=== PATIENT | male | born 2000 | race Caucasian/White ===

== ENCOUNTER 2024-12-05 12:57 | Emergency (ER) | payer SELFPAY ==
--- NOTE | ~2024-12-05 | XR_ITS ---
XR shoulder RT min 2V Ordering provider: Marlon Barrientos MD History: . right shoulder injury . Comparison: None. FINDINGS: BONES: No acute fracture or dislocation. JOINT SPACES: The acromioclavicular joint is normal. The glenohumeral joint is normal. SOFT TISSUES: Normal. IMPRESSION: No acute osseous abnormality right shoulder. Reviewed, dictated and finalized at location A.
[2024-12-05 12:57] VITALS: BP 131/83; PULSE 56; RESP 18; TEMP 36.3; O2SAT 97
--- NOTE | 2024-12-05 14:00 | ED.UPPEXIN ---
HPI - Extremity Injury (Upper) General Chief Complaint: Extremity Injury, Upper Stated Complaint: Shoulder pain Time Seen by Provider: 12/05/24 13:10 Source: patient Mode of arrival: ambulatory Limitations: no limitations History of Present Illness HPI narrative: patient is a 24-year-old male with no significant past medical history has been doing some heavy lifting and over the past couple days has felt shoulder discomfort on the right with no known injury no direct injury no numbness or tingling radiating down his arm has good range of motion although mildly limited with no bruising or swelling. MD complaint: injury to: right Onset (ago): day(s) Other Extremity Injury: Right: shoulder ( right shoulder discomfort with movement) Other injuries: none Handedness: right Place: work Severity: mild Severity scale (1-10): 3 Relieving factors: immobilization Exacerbating factors: movement of extremity Associated symptoms: denies other symptoms Related Data Allergies Allergy/AdvReac Type Severity Reaction Status Date / Time No Known Allergies Allergy Verified 12/05/24 13:19 Review of Systems Review of Systems: All systems reviewed & are unremarkable except as noted in HPI and below PMFSH Past Medical History Medical History Patient denies medical problems Exam Const: General: healthy appearing, no acute distress and alert Nutritional Appearance: well nourished Orientation/consciousness: patient oriented x3 Limitations: no limitations Neck: Neck: normal visual inspection, no lymphadenopathy and no meningeal signs Chest: Chest palpation & inspection: normal inspection of the chest Resp: Effort & Inspection: normal respiratory effort Auscultation: clear to auscultation bilaterally Cardio: Rate: regular rate Rhythm: regular rhythm GI: GI Palp: Yes Soft to palpation Auscultation: normal bowel sounds Urinary Catheter: Urinary Catheter: patent and draining Back/Spine/Pelvis: Back: no CVA tenderness Skin: General skin exam: normal color Rashes: no rashes Wounds: no wounds Neuro: General: patient oriented x3, moves all extremities, no meningeal signs and no focal motor deficits Extrem: Other: tenderness right shoulder with movement Course Course Emergency Course: patient declined pain medication at this time, x-ray showed no acute abnormalities. Vital Signs Vital signs: Vital Signs Temperature 36.3 C L 12/05/24 12:57 Pulse Rate 56 L 12/05/24 12:57 Respiratory Rate 18 12/05/24 12:57 Blood Pressure 131/83 12/05/24 12:57 Pulse Oximetry 97 12/05/24 12:57 Oxygen Delivery Room Air 12/05/24 12:57 Temperature 36.3 C L 12/05/24 12:57 Pulse Rate 56 L 12/05/24 12:57 Respiratory Rate 18 12/05/24 12:57 Blood Pressure 131/83 12/05/24 12:57 Pulse Oximetry 97 12/05/24 12:57 Oxygen Delivery Room Air 12/05/24 12:57 Critical Care Time Critical Care Time Critical Care Time: No Discharge Plan Discharge Clinical Impression: Muscle strain of right shoulder Patient Disposition: Home Condition: Stable Instructions: Antibiotic Form, Rotator Cuff Injury (ED) Additional Instructions: advised patient to take medication as prescribed, otherwise can take Aleve as needed [id number]. Follow-up with primary care physician in approximately 1 week if symptoms persist or worsen. Patient Language: Kiswahili Prescriptions: New naproxen 500 mg tablet 500 mg PO BID PRN (Reason: pain) Qty: 10 0RF Follow-up/Referrals: Vadim Metzger DO [Primary Care Provider] - Time of Disposition: 14:05
[2024-12-05 14:09] VITALS: BP 124/81; PULSE 60; RESP 20; TEMP 36.7; O2SAT 98
== END 2024-12-05 14:10 | disposition home or self-care (01) ==
PROVIDERS: Emergency Provider Emergency Medicine; Referring Provider Family Medicine
DX: S46.911A Strain of unspecified muscle, fascia and tendon at shoulder and upper arm level, right arm, initial encounter (principal); X50.0XXA Overexertion from strenuous movement or load, initial encounter
CPT/HCPCS: 73030; 99283

== ENCOUNTER 2024-12-06 17:12 | Emergency (ER) | payer SELFPAY ==
--- NOTE | ~2024-12-06 | XR_ITS ---
XR wrist RT min 3V Ordering provider: Nick Keyes MD History: . Fall, lateral Rt. wrist pain . Comparison: None. FINDINGS: BONES: No acute fracture or dislocation. No definite scaphoid fracture. JOINT SPACES: Normal. SOFT TISSUES: Normal. IMPRESSION: No acute osseous abnormality right wrist. Reviewed, dictated and finalized at location A.
[2024-12-06 17:12] VITALS: BP 140/94; PULSE 62; RESP 17; TEMP 36.3; O2SAT 97
--- NOTE | 2024-12-06 17:27 | ED.UPPEXIN ---
HPI - Extremity Injury (Upper) General Chief Complaint: Extremity Injury, Upper Stated Complaint: right wrist pain Time Seen by Provider: 12/06/24 17:16 Source: patient Mode of arrival: ambulatory Limitations: no limitations History of Present Illness HPI narrative: Patient is a 24-year-old male with a right wrist injury prior to arrival. Patient was walking down stairs and on the last 2 steps he leaned forward and fell onto his right wrist with his weight and sustained an injury. No other injuries. Head and neck were negative for injury. MD complaint: injury to: right and wrist Onset (ago): hour(s) ( One) Other injuries: none Place: home Severity: moderate Severity scale (1-10): 5 Relieving factors: cold therapy and immobilization Exacerbating factors: movement of extremity Context: fall and direct blow Associated symptoms: denies other symptoms Treatments prior to arrival: cold therapy Related Data Allergies Allergy/AdvReac Type Severity Reaction Status Date / Time No Known Allergies Allergy Verified 12/06/24 17:34 Review of Systems Review of Systems: All systems reviewed & are unremarkable except as noted in HPI and below Constitutional: Constitutional: Reports no additional constitutional complaints Eyes: Eyes: Reports no additional eye complaints ENT: Reports system reviewed and no additional complaints, except as documented Cardiovascular: Cardiovascular: Reports no additional cardiovascular complaints Respiratory: Respiratory: Reports no additional respiratory complaints Gastrointestinal: Gastrointestinal: Reports no additional gastrointestinal complaints Genitourinary: Genitourinary: Reports no additional male genitourinary complaints Musculoskeletal: Musculoskeletal: Reports no additional musculoskeletal complaints Integumentary/Breasts: Skin/Breast: Reports system reviewed and no additional complaints, except as docu Neurologic: Reports system reviewed and no additional complaints, except as documented Psychiatric: Psychiatric: Reports no additional psychiatric complaints Endocrine: Endocrine: Reports no additional endocrine complaints Hematologic/Lymphatic: Hematologic/Lymphatic: Reports no additional hematologic/lymphatic complaints Allergic/Immunologic: Allergic/Immunologic: Reports no additional allergic/immunologic complaints PMFSH Past Medical History Medical History Patient denies medical problems Exam Const: General: healthy appearing Nutritional Appearance: well nourished Orientation/consciousness: patient oriented x3 Limitations: no limitations HENMT: Head: normal to inspection Ears: external ears normal Face/Nose/Sinus: Normal external nose present Eyes: Conjunctivae: conjunctivae normal Pupils: Equal, round and reactive pupils present EOM: EOMs intact bilaterally Neck: Neck: normal visual inspection Chest: Chest palpation & inspection: normal inspection of the chest Resp: Effort & Inspection: normal respiratory effort and not labored Auscultation: clear to auscultation bilaterally and no crackles Cardio: Rate: regular rate Rhythm: regular rhythm Heart sounds: no murmurs GI: Inspection: non-distended GI Palp: Yes Soft to palpation and No Tenderness to palpation present (GI) Auscultation: normal bowel sounds : General: Yes bladder normal to palpation Back/Spine/Pelvis: Back: no CVA tenderness Skin: General skin exam: normal color Rashes: no rashes Wounds: no wounds Neuro: General: patient oriented x3, moves all extremities, no meningeal signs, no focal motor deficits and CN's II-XI intact bilaterally Cranial nerves: Yes Nystagmus not present Extrem: General: abnormal to inspection Other: right wrist medial aspect has erythema with abrasion and swelling; the same area is tender to palpation without deformity Psych: Mental Status: mental status grossly normal Affect: normal affect Attitude: cooperative MDM - Extremity Injury (Upper) MDM Narrative Medical decision making narrative: patient is a 24-year-old male with a right wrist injury prior to arrival. We will get an x-ray. Patient did not want pain medicine. Imaging Data Attestation: I personally reviewed and interpreted this imaging study as follows: Radiologist's impression: X-ray right wrist was negative for acute process Discharge Plan Discharge Clinical Impression: Right wrist sprain Qualifiers: Encounter type: initial encounter Wrist sprain location: unspecified location Qualified Code(s): S63.501A - Unspecified sprain of right wrist, initial encounter Patient Disposition: Home Condition: Stable Instructions: Wrist Sprain (ED) Additional Instructions: rest, ice, compression and elevation. Ibuprofen and Tylenol as needed for pain. Patient Language: Sierra Leonean Prescriptions: No Action naproxen 500 mg tablet 500 mg PO BID PRN (Reason: pain) Qty: 10 0RF Follow-up/Referrals: Vadim Metzger DO [Primary Care Provider] - Time of Disposition: 18:06
[2024-12-06 18:15] VITALS: BP 140/94; PULSE 62; RESP 17; TEMP 36.3; O2SAT 97
== END 2024-12-06 18:15 | disposition home or self-care (01) ==
PROVIDERS: Emergency Provider Emergency Medicine; PCP Family Medicine
DX: S63.501A Unspecified sprain of right wrist, initial encounter (principal); W10.9XXA Fall (on) (from) unspecified stairs and steps, initial encounter
CPT/HCPCS: 29125; 73110; 99283

== ENCOUNTER 2025-02-06 12:23 | Emergency (ER) | payer SELFPAY ==
[2025-02-06 12:29] VITALS: BP 123/80; PULSE 88; RESP 20; O2SAT 97
--- OUTSIDE RECORDS SUMMARY | 2025-02-06 12:30 | XMS_ITS | Clinical Summary ---
Author Organization [facility] Address [facility] [place] [address] Care Team Providers Care Swimming Coach Name Role Phone None, Provider MD Primary Care Provider Unavaila ble Allergies No known active allergies Medications No known medications Immunizations Immunization Administration Dates Next Due Dtap (Acel-Immune) 02/03/2004, 0,06/08/1999,04/06,01/05/1999 HPV4 (Gardasil) 04/02/2013 Hepatitis A (Havrix [address]) 04/02/2013 Hib-Hepatitis B (Comvax) 12/07/1999,04/06/1999,0 01/05/1999 MMR (MMRII) 02/03/2004,12/07/1999 Meningococcal (Menactra) 02/11/2016,04/02/2013 PFIZER COVID-19 (ORIGINAL FO RMULATION, PURPLE CAP) mRNA, LNP-S, PF, 30 MCG/0.3 ML DOSE 03/06/2021,02/12/2021 Polio IPV (Ipol) 02/03/2004, 0,04/06/1999,01/05 Tdap (Adacel) 07/01/2022 Tdap (Generic) 04/02/2013 Varicella (Varivax) 04/02/2013,03/18/2002 Social History Tobacco Use Types Packs/Day Years Used Date Smoking Tobacco: Never Assessed Tobacco Cessation:Counseling Given: No PHQ-2 Answer Date Recorded Patient Health Questionnaire-2 Score 0 07/01/2022 Sex and Gender Information Value Date Recorded Sex Assigned at Not on file Legal Sex Male 9: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 BOAT TENDER Gender Identity Not on file Sexual Orientation Not on file Last Filed Vital Signs Vital Sign Reading Time Taken Comments Blood Pressure 128/82 07/01/2022 6:24 PM BOAT TENDER Pulse 80 07/01/2022 6:24 PM BOAT TENDER Temperature 35.7 C (96.3 F) 07/01/2022 6:24 PM BOAT TENDER Respiratory Rate 16 07/01/2022 6:24 PM BOAT TENDER Oxygen Saturation 99% 07/01/2022 6:24 PM BOAT TENDER Inhaled Oxygen Concentration - - Weight 115.7 kg (255 lb) 07/01/2022 6:24 PM BOAT TENDER Height 177.8 cm (5' 10) 07/01/2022 6:24 PM BOAT TENDER Body Mass Index 36.59 07/01/2022 6:24 PM BOAT TENDER Plan of Treatment Health Maintenance Due Date Last Done Comments Annual Physical 2001 HPV Vaccines (2 - Male 2-dose series) 10/01/2013 04/02/2013 Hepatitis C 2016 COVID-19 Vaccine (3 - season) 2024 03/06/2021, 02/12/2021 DTaP, Tdap and Td Vaccines (8 - Td or Tdap) 07/01/2032 07/01/2022, 04/02/2013, 02/03/2004, Additional history exists Hepatitis B Vaccines Completed 12/07/1999, 04/06/1999, 01/05/1999 Meningococcal Vaccine Completed 02/11/2016, 013 Meningococcal B Vaccine Aged Out No l onger eligible based on patient's age to complete this topic Pneumococcal Vaccine: Pediatrics (0 to 5 Years) and At-Risk Patients (6 to 49 Years) Aged Out No longer eligible based on patient's age to complete this topic RSV Immunizations Under 20 Months Aged Out No longer eligible based on patient's age to complete this topic Care Teams Swimming Coach Relationship Specialty Start Date End Date None, Provider, PCP - General 08/17/21
--- OUTSIDE RECORDS SUMMARY | 2025-02-06 12:30 | XMS_ITS | Encounter Summary ---
Author Organization [facility] Address [facility] [place] [address] Care Team Providers Care Senior Science Consultant Name Role Phone None, Provider Primary Care Provider Unavaila ble Encounter Details Date Type Department Care Team (Late st Contact Info) Description 11/17/2018 Abstract SFL CONVERSION [address] [place] [id number] , Generic Conversion, Social History Tobacco Use Types Packs/Day Years Used Date Smoking Tobacco: Never Assessed Sex and Gender Information Value Date Recorded Sex Assigned at Not on file Legal Sex Male 9:40 PM MELON PACKER Gender Identity Not on file Sexual Orientation Not on file documented as of this encounter Plan of Treatment Not on file documented as of this encounter Visit Diagnoses Not on filedocumented in this encounter Care Teams Senior Science Consultant Relationship Specialty Start Date End Date None, Provider, PCP - General 08/17/21 documented as of this encounter
[2025-02-06 12:32] VITALS: TEMP 36.8
--- NOTE | 2025-02-06 12:42 | ED.SKABFB ---
HPI - Skin/Abscess/Foreign Bdy General Chief complaint: Skin/Abscess/Foreign Body Stated complaint: Rash Time Seen by Provider: 02/06/25 12:40 Source: patient Mode of arrival: ambulatory Limitations: no limitations History of Present Illness HPI narrative: this is a 24-year-old male with no significant past medical history presents with a rash located on his left lower extremity and going up to his thigh itchy was doing hiking approximately 2 days ago there is no shortness of breath no audible wheezing no fever chills no nausea vomiting or abdominal pain. complaint: rash Onset (ago): day(s) Location: LLE Severity: mild Related Data Allergies Allergy/AdvReac Type Severity Reaction Status Date / Time No Known Allergies Allergy Verified 02/06/25 12:32 Review of Systems Review of Systems: All systems reviewed & are unremarkable except as noted in HPI and below PMFSH Past Medical History Medical History Patient denies medical problems Exam Const: General: healthy appearing and no acute distress Nutritional Appearance: well nourished Orientation/consciousness: patient oriented x3 Limitations: no limitations Eyes: Conjunctivae: conjunctivae normal Pupils: Equal, round and reactive pupils present Neck: Neck: normal visual inspection, no lymphadenopathy and no meningeal signs Chest: Chest palpation & inspection: normal inspection of the chest Resp: Effort & Inspection: normal respiratory effort Auscultation: clear to auscultation bilaterally Cardio: Rate: regular rate Rhythm: regular rhythm GI: Auscultation: normal bowel sounds Skin: Wounds: wounds noted Neuro: General: patient oriented x3, moves all extremities and no meningeal signs Extrem: General: normal to inspection Course Course Emergency Course: Patient has taken Benadryl over the counter and will administer a dose of IM Depo-Medrol 80mg IM. Will send a prescription steroid p.o. to his local pharmacy. Vital Signs Vital signs: Vital Signs Pulse Rate 88 02/06/25 12:29 Respiratory Rate 20 02/06/25 12:29 Blood Pressure 123/80 02/06/25 12:29 Pulse Oximetry 97 02/06/25 12:29 Oxygen Delivery Room Air 02/06/25 12:29 Temperature 36.8 C 02/06/25 12:32 Pulse Rate 88 02/06/25 12:29 Respiratory Rate 20 02/06/25 12:29 Blood Pressure 123/80 02/06/25 12:29 Pulse Oximetry 97 02/06/25 12:29 Oxygen Delivery Room Air 02/06/25 12:29 Critical Care Time Critical Care Time Critical Care Time: No Discharge Plan Discharge Clinical Impression: Contact dermatitis Qualifiers: Contact dermatitis type: unspecified Contact dermatitis trigger: other trigger Qualified Code(s): L25.8 - Unspecified contact dermatitis due to other agents Patient Disposition: Home Condition: Stable Instructions: Antibiotic Form, Contact Dermatitis (ED) Additional Instructions: Advised patient to take medication as prescribed, can take Zyrtec or Benadryl as needed and follow with primary if symptoms persist or worsen. Patient Language: Czech Prescriptions: New methylprednisolone [Medrol (Esequiel)] 4 mg tablets,dose pack See Rx Instructions .ROUTE .COMPLEX Qty: 21 0RF Rx Instructions: for 6 days triamcinolone acetonide 0.1 % ointment 1 applic topical TID 7 Days Qty: 15 0RF No Action naproxen 500 mg tablet 500 mg PO BID PRN (Reason: pain) Qty: 10 0RF Follow-up/Referrals: Vadim Metzger DO [Primary Care Provider, [facility]] Time of Disposition: 12:52
[2025-02-06] MEDS: methylPREDNISolone ACETATE 40 MG/ML VIAL 80 MG IM (12:49)
--- OUTSIDE RECORDS SUMMARY | 2025-02-06 13:03 | XMS_ITS | Clinical Summary ---
Author Organization [facility] Address [facility] [place] [address] Care Team Providers Care Exploration Manager Name Role Phone None, Provider MD Primary [...] on file Legal Sex Male 9:40 PM COLUMNIST Gender Identity Not on file Sexual Orientation Not on file Last Filed Vital Signs Vital Sign Reading Time Taken Comments Blood Pressure 128/82 07/01/2022 6:24 PM COLUMNIST Pulse 80 07/01/2022 6:24 PM COLUMNIST Temperature 35.7 C (96.3 F) 07/01/2022 6:24 PM COLUMNIST Respiratory Rate 16 07/01/2022 6:24 PM COLUMNIST Oxygen Saturation 99% 07/01/2022 6:24 PM COLUMNIST Inhaled Oxygen Concentration - - Weight 115.7 kg (255 lb) 07/01/2022 6:24 PM COLUMNIST Height 177.8 cm (5' 10) 07/01/2022 6:24 PM COLUMNIST Body Mass Index 36.59 07/01/2022 6:24 PM COLUMNIST Plan of Treatment Health Maintenance Due Date [...] age to complete this topic Care Teams Exploration Manager Relationship Specialty Start Date End Date None, Provider, PCP - General 08/17/21
--- OUTSIDE RECORDS SUMMARY | 2025-02-06 13:03 | XMS_ITS | Encounter Summary ---
Author Organization [facility] Address [facility] [place] [address] Care Team Providers Care Pipe Fitter Supervisor Maintenance Name Role Phone None, Provider Primary Care Provider Unavaila ble Encounter Details Date Type Department Care Team (Late st Contact Info) Description 11/17/2018 Abstract SFL CONVERSION [address] [place] [id number] , Generic Conversion, Social History Tobacco Use Types Packs/Day Years Used Date Smoking Tobacco: Never Assessed Sex and Gender Information Value Date Recorded Sex Assigned at Not on file Legal Sex Male 9:40 PM MEDICAL LANGUAGE SPECIALIST Gender Identity Not on file Sexual Orientation Not on file documented as of this encounter Plan of Treatment Not on file documented as of this encounter Visit Diagnoses Not on filedocumented in this encounter Care Teams Pipe Fitter Supervisor Maintenance Relationship Specialty Start Date End Date None, Provider, PCP - General 08/17/21 documented as of this encounter
--- OUTSIDE RECORDS SUMMARY | 2025-02-06 13:03 | XMS_ITS ---
Author Organization Unknown ENCOUNTERS Encounter Performer Location Date Diagnosis Diagnosis [place] [address] [id number] [facility] [place] [address] [place] [address] [id number] [place] [address] [id number] [facility] Pre Admit [address] [address] [id number] [place] [address] [id number] [facility] Pre Admit [address] [address] [phone] *Note: Encounters from your own facility or health system may be excluded. Allergies, Adverse Reactions, Alerts Allergen Type Severity Identification Date Medications Name Date Quantity Days Supplied GPI Number
== END 2025-02-06 12:58 | disposition home or self-care (01) ==
LOC: CHSED 12:52
PROVIDERS: Emergency Provider Emergency Medicine; Referring Provider Family Medicine
DX: L25.8 Unspecified contact dermatitis due to other agents (principal)
CPT/HCPCS: 96372; 99283; J1010